=== PATIENT | female | born 1990 | race Two or more races ===

== ENCOUNTER 2024-09-01 08:27 | Inpatient (IN) | payer BC, SELFPAY ==
[2024-09-01 08:39] VITALS: BP 122/81; BMI 31.7
[2024-09-01] MEDS: LR 1000 IV ×2 (09:00→11:40)
[2024-09-01 10:07] LABS: % Basophils 0.3 % (0-2); % Eosinophils 0.3 % (0-6); % Immature Granulocytes 0.4 % (0-0.5); % Lymphocytes 9.8 % (20.5-51.1); % Neutrophils 84.2 % (42.2-75.2); Absolute Eosinophils 0.1 10^3/uL (0-0.7); Absolute Immature Granulocytes 0.1 10^3/uL (0-0.05); Absolute Lymphocytes 1.6 10^3/uL (1.2-3.4); Absolute Monocytes 0.8 10^3/uL (0.1-0.6); Absolute Neutrophils 13.5 10^3/uL (1.4-6.5); Hematocrit 39.6 % (37.0-47.0); Hemoglobin 13.9 g/dL (12.0-16.0); Mean Corp Hgb Conc. 35.1 g/dL (33.0-37.0); Mean Corpuscular Hgb 29.8 pg (27.0-31.0); Mean Platelet Volume 11.6 fL (7.4-10.4); Nucleated Red Blood Cells % 0 %; Platelet Count 230 10^3/uL (130-400); Red Blood Cell Count 4.66 10^6/uL (4.20-5.40); Red Cell Dist. Width 13.2 % (11.5-14.5)
[2024-09-01] MEDS: STADOL 1 MG IV (11:45)
[2024-09-01] MEDS: SUBLIMAZE 100 MCG EPIDURAL (13:14)
[2024-09-01] MEDS: FENTANYL/BUPIVACAINE 100 EPIDURAL (13:16)
[2024-09-01] MEDS: MOTRIN 600 MG PO (20:41)
[2024-09-01] MEDS: TYLENOL 650 MG PO (20:41)
[2024-09-02] MEDS: MOTRIN 600 MG PO ×3 (04:57→17:51)
[2024-09-02] MEDS: TYLENOL 650 MG PO ×3 (04:57→17:51)
[2024-09-02 05:27] LABS: Hemoglobin 12.2 g/dL (12.0-16.0)
[2024-09-02] MEDS: SENOKOT-S 1 TABLET PO (07:55)
[2024-09-02] MEDS: PRENATAL PLUS 1 TABLET PO (07:55)
[2024-09-02] MEDS: HYDROCORTISONE 2.5% OINTMENT 1 APPLIC TOPICAL (12:10)
[2024-09-02 12:15] LABS: Syphilis/T. pallidum Ab Reflex Negative (Negative)
[2024-09-03] MEDS: MOTRIN 600 MG PO ×2 (00:28→07:52)
[2024-09-03] MEDS: TYLENOL 650 MG PO ×2 (00:29→07:50)
[2024-09-03] MEDS: SENOKOT-S 1 TABLET PO (07:52)
[2024-09-03] MEDS: PRENATAL PLUS 1 TABLET PO (07:52)
== END 2024-09-03 12:34 | disposition home or self-care (01) | DRG 807 ==
LOC: LDRP 08:27
PROVIDERS: Student in an Organized Health Care Education/Training Program; ADMITTING PHYSICIAN Obstetrics & Gynecology; ATTENDING PHYSICIAN Obstetrics & Gynecology; FAMILY PHYSICIAN Nurse Practitioner Family
PROC: 10907ZC Drainage of Amniotic Fluid, Therapeutic from Products of Conception, Via Natural or Artificial Opening (ICD-10-PCS; 2024-09-01)
PROC: 10D07Z6 Extraction of Products of Conception, Vacuum, Via Natural or Artificial Opening (ICD-10-PCS; 2024-09-01)
DX: O66.0 Obstructed labor due to shoulder dystocia (principal); Z37.0 Single live birth; O76 Abnormality in fetal heart rate and rhythm complicating labor and delivery; Z3A.38 38 weeks gestation of pregnancy
CPT/HCPCS: 36415; 85014; 85018; 85025; 86780; 86850; 86900; 86901

== ENCOUNTER 2024-09-07 10:40 | Observation (INO) | payer BC, SELFPAY ==
[2024-09-07 10:56] VITALS: BP 132/83; BMI 31.5
[2024-09-07 11:37] LABS: Hemoglobin 11.6 g/dL (12.0-16.0); Mean Corp Hgb Conc. 33.1 g/dL (33.0-37.0); Mean Corpuscular Hgb 29.4 pg (27.0-31.0); Mean Corpuscular Volume 88.6 fL (81.0-99.0); Mean Platelet Volume 10.2 fL (7.4-10.4); Platelet Count 319 10^3/uL (130-400); Red Blood Cell Count 3.95 10^6/uL (4.20-5.40); Red Cell Dist. Width 12.8 % (11.5-14.5); White Blood Cell Count 10.1 10^3/uL (4.8-10.8)
[2024-09-07 11:42] LABS: Urine Albumin Negative (Neg - Trace); Urine Bilirubin Negative (Negative); Urine Character Clear (Clear); Urine Color Yellow; Urine Glucose Negative (Negative); Urine Ketone Negative (Negative); Urine Leukocyte 3+ (Negative); Urine Nitrite Negative (Negative); Urine Occult Blood 4+ (Negative); Urine Urobilinogen Negative (Neg - 1+)
[2024-09-07 11:54] LABS: Urine Squamous Cell >30 /LPF (Few)
[2024-09-07 11:58] LABS: Urine Bacteria Moderate (Negative); Urine White Cell 70-80 /HPF (0-5)
[2024-09-07] MEDS: TYLENOL 650 MG PO (12:02)
[2024-09-07 12:14] LABS: ALT (SGPT) 26 U/L (0-35); AST (SGOT) 19 U/L (14-36); Albumin 3.4 g/dl (3.5-5.0); Alkaline Phosphatase 98 U/L (38-126); Blood Urea Nitrogen 12 mg/dl (7-17); Calcium 9.3 mg/dl (8.4-10.2); Carbon Dioxide 25 mmol/L (22-30); Chloride 110 mmol/L (98-107); Estimated Creatinine Clearance 115 ml/min; Glucose 79 mg/dl (70-99); Potassium 4.3 mmol/L (3.5-5.1); Sodium 140 mmol/L (135-145); Total Bilirubin 0.5 mg/dl (0.2-1.3); Total Protein 6.2 g/dl (6.3-8.2); Uric Acid 5.7 mg/dl (2.5-6.2); eGFR > 60.00
[2024-09-07 12:49] LABS: Protein/creatinine Ratio 0.7; Urine Protein 17 mg/dl
== END 2024-09-07 14:22 | disposition home or self-care (01) ==
LOC: LDRP 10:40
PROVIDERS: ADMITTING PHYSICIAN Obstetrics & Gynecology
DX: O12.15 Gestational proteinuria, complicating the puerperium (principal); R51.9 Headache, unspecified
CPT/HCPCS: 80053; 81003; 81015; 82570; 84156; 84550; 85027